=== PATIENT | female | born 1940 | race Caucasian/White ===

== ENCOUNTER 2016-08-06 22:41 | Inpatient (IN) ==
[2016-08-06] MEDS ORDERED: ALBUTEROL/IPRATROPIUM 3 ML NEB RESP TX STA (23:08)
[2016-08-06] MEDS ORDERED: methylPREDNISolone SOD SUC 125 MG/2 ML VIAL IV STA (23:08)
[2016-08-06] MEDS ORDERED: KETOROLAC 30 MG/1 ML VIAL IV STA (23:08)
[2016-08-06] MEDS ORDERED: AZITHROMYCIN INJ 500 MG in SODIUM CHLORIDE 0.9% 250 ML IV STA (23:11)
--- NOTE | 2016-08-06 23:15 | Emergency Department Note ---
Arrival - Arrival Chief Complaint: Shortness of Breath Stated Complaint: sob ED Nursing Triage Note: patient to ED transferring [facility] with c/o chest pain with movement and SOB. patient has nonproductive cough, elevated d dimer at 3.53 , and sating 87% on RA. Mode of Arrival: Stretcher Limitations: No Limitations Source: Patient, Family (onset of symptoms 2 weeks prior to presentation) Time Seen by Provider: 08/06/16 23:08 - History of Present Illness HPI Narrative: This 75-year-old white female presents on transfer from [facility] for complaints of 2 weeks of bilateral lower leg pains as well as progressive shortness of breath both at rest and with exertion as well as a dry cough. During this time she is likewise had a significant urinary tract infection for which she was on antibiotics. She has been seen prior to today 6 days ago for her symptoms but no significant change in treatment was given as she was already on antibiotics for the cystitis. She describes her pain as pleuritic and in the central chest not associated with hemoptysis. She denies a history of DVT or pulmonary embolus. She likewise denies any history of cardiac disease. At [place] she demonstrated an elevated d-dimer and they considered CTA however her creatinine was 2.3 so she could not receive intravenous contrast. She was given Rocephin IV as well as Lovenox subcutaneous and then transferred to our institution for further evaluation and possible lung scan in the morning. Currently she coughs frequently but does not appear in any severe distress although she does complain still of shortness of breath. Onset (ago): week(s) Consistency: constant Allergies/Adverse Reactions: Allergies Allergy/AdvReac Type Severity Reaction Status Date / Time No Known Allergies Allergy Unverified 08/06/16 22:53 Home Medications: Home Medications Medication Instructions Recorded Confirmed Type Unable To Obtain [Unable to Obtain] 08/06/16 08/06/16 History Review of System - Review of System 12 point system: reviewed and no additional remarkable complaints except as stated - Review of System Constitutional: Present: as per HPI Respiratory: Present: as per HPI Cardiovascular: Present: as per HPI Musculoskeletal: Present: as per HPI Medical,Surgical,& Family Hx - Medical History Cardio: History of: Hypertension Endocrine: History of: Thyroid Disorder - Social History Smoking Status: Never smoker Frequency of Alcohol Use: None Type of Drug Use: None Exam Physical Examination: GENERAL: Frail distant white female in no acute distress. HEENT: Normocephalic. No trauma. Moist mucous membranes. EOMI. PERRLA. NECK: Supple. No adenopathy. CARDIAC: Regular. No murmurs. Heart rate 105 CHEST: Clear to auscultation. No respiratory distress. O2 sat 90% ABDOMEN: Soft. Nontender. Active bowel sounds. EXTREMITIES: No trauma. Normal ROM. No pedal edema. Negative Homans sign SKIN: No diaphoresis. No rash. NEURO: Alert. Neuro intact. No focal deficits. Vital Signs: Vital Signs Temperature 97.2 F L 08/06/16 22:57 Pulse Rate 102 H 08/06/16 23:18 Respiratory Rate 26 H 08/06/16 23:18 Blood Pressure 128/92 08/06/16 22:57 O2 Sat by Pulse Oximetry 92 L 08/06/16 23:18 Course - Reevaluation(s) Reevaluation #1: Patient expectant of admission - Consultations Consultation #1: Discussed with Dr. Gottlieb, hospitalist, who will admit for further evaluation and treatment. Results - Labs CBC & BMP: 08/06/16 23:35 08/06/16 23:35 Labs: Laboratory per [place]: Troponin negative at 0.019, creatinine 2.1, sodium 137, CO2 20, glucose 113, BUN 34, white blood cell count 12,300, hematocrit 32.1, d- dimer 3.53 with a max normal of 0.53, BNP 194 with a max normal of 100. I have reviewed laboratory done here which reveals persistent anemia, hypokalemia, and renal insufficiency - Impressions EKG: Sinus rhythm at 98 with normal CO interval and QRS duration. Nonspecific ST changes. No acute injury pattern noted. - Diagnostic Findings Procedure: Chest x-ray: image reviewed by me, report reviewed by me (massive cardiomegaly with possible effusions) Disposition Clinical Impression: presumptive PTE, CHF with massive cardiomegaly, renal insufficiency, anemia, hypokalemia Case discussed with: patient, patient's family Condition: Guarded Time of Disposition: 00:29
[2016-08-06] MEDS ORDERED: KETOROLAC 30 MG/1 ML VIAL ONE (23:32)
[2016-08-06] MEDS ORDERED: AZITHROMYCIN 500 MG VIAL IV ONE (23:32)
[2016-08-06] MEDS ORDERED: methylPREDNISolone SOD SUC 125 MG/2 ML VIAL ONE (23:32)
--- NOTE | 2016-08-06 23:34 | EKG Report ---
Stationary ECG Study [facility] ER Test Date: 08/06/2016 11:32:17 PM Pat Name: YENI MENDEZ Department: Room: Gender: F Chief [place]ar[place]: : 1940 Requested by: Jorge Sigala Order Number: [id number] Reading MD: JOHNNY CANO Intervals [place] Rate: 98 P: 56 IN: 159 QRS: -7 QRSD: 90 T: 38 QT: 365 QTc: 420 Interpretive Statements SINUS RHYTHM NONSPECIFIC T-WAVE ABNORMALITY Electronically Signed On 08-07-16 17:55:51 PATIENT CARE SECRETARY by JOHNNY CANO [email or web address]
[2016-08-06 23:58] LABS: Basophils % 0.3 % (0.0-0.8); Eosinophils % 0.3 % (0.00-10.9); Hematocrit 33.1 VOL% (35.7-47.0); Hemoglobin 10.8 GM/DL (12.0-16.0); Immature Granulocytes Absolute 0.12 #; Lymphocytes # 1.8 10*3/uL (1.4-4.0); Lymphocytes % 15.4 % (21.3-54.2); Mean Corpuscular HGB Conc 32.6 GM/DL (32-36); Mean Corpuscular Hemoglobin 27 PG (27-34); Monocytes # 1.1 10*3/uL (0.11-0.8); Monocytes % 9.4 % (1.7-12.7); Neutrophils # 8.4 10*3/uL (1.4-7.4); Neutrophils % 73.6 % (38.7-73.9); Platelet Count 391 T/CUMM (130-400); Red Blood Count 3.99 MC/CUMM (3.8-5.5); Red Cell Distribution Width 18.8 % (9.3-17.3); White Blood Count 11.4 T/CUMM (4-12)
[2016-08-07 00:10] LABS: INR 1.2; PT Patient Result 12.6 SECS; Partial Thromboplastin Time 30.8 SECS (0-40)
[2016-08-07] MEDS ORDERED: LORazepam 2 MG/1 ML VIAL IV STA (00:15)
[2016-08-07 00:16] LABS: Albumin 2.8 G/DL (3.4-5.0); Bilirubin,Total 0.7 MG/DL (0.2-1.0); Calcium 8.6 MG/DL (8.5-10.1); Osmolality,Calculated 292.1 MOS/KG (273-304); Total Protein 7.3 G/DL (6.4-8.3)
[2016-08-07] MEDS ORDERED: LORazepam 2 MG/1 ML VIAL ONE (00:16)
[2016-08-07] MEDS ORDERED: ENOXAPARIN 100 MG/ML SYRINGE SUBCUT STA (00:34)
[2016-08-07] MEDS ORDERED: ENOXAPARIN 100 MG/ML SYRINGE SUBCUT ONE (00:38)
--- NOTE | 2016-08-07 02:19 | Hospitalist History & Physical ---
Assessment and Plan (1) Elevated d-dimer Status: Acute Current Visit: Yes (2) Shortness of breath Status: Acute Current Visit: Yes (3) decreased O2 sats Status: Acute Current Visit: Yes (4) large cardiac silhouette on chest x-ray Status: Acute Current Visit: Yes (5) History of hypertension Status: Acute Current Visit: Yes (6) increased creatinine Status: Acute Assessment and plan: Plan for this patient. Patient is currently received IV Rocephin and 100 mg of Lovenox. She received the IV Rocephin for the urinary tract infection. They were concerned that patient had a PE. They sending her over to our hospital for a VQ scan we will order a VQ scan. I'm also going to order a 2-D echo. Patient's enlarged cardiac silhouette is significant. I will make sure that there is not a large pericardial effusion in this patient. Patient's family's is supposed to bring her home medications at our hospital. She received 100 mg of IV Lovenox at the outside facility. Based on her creatinine this is an appropriate amount that can be given every 24 hours for treatment of a PE. If the VQ scan is negative for PE will be able to discontinue that medication. Current Visit: Yes History of Present Illness Chief complaint: shortness of breath transfer from outside facility History of present illness: This is Ms. Myers she is a 75-year-old white female past medical history of includes cholesterol hypertension urinary tract infection arthritis and presents tonight as a transfer from an outside facility. Patient's been experiencing complaints 2 weeks. She had been complaining about leg pain as well as progressive shortness of breath at rest and exertion as well as a dry cough. Her daughter said she came home today to check on her mother and the mother was in the bed crying saying that she was hurting in her chest. She did have some episodes of vomiting. She described the pain as pleuritic and in the center of her chest with no hemoptysis. She doesn't have a history of DVT or PE. She has no history of cardiac disease or congestive heart failure. In the workup at [facility] she had an elevated d-dimer. They considered doing a CTA however creatinine was 2.3 and she did not receive any IV contrast. She was given IV Rocephin and Lovenox. The right Rocephin was for cystitis. And there were sending her here for a possible lung scan in the morning. Currently are not examined her she is asleep saying that she feels better and that she's not short of breath I was consulted to admit the patient Home Medications Medication Instructions Recorded Confirmed Type Unable To Obtain [Unable to Obtain] 08/06/16 08/06/16 History Allergies Allergy/AdvReac Type Severity Reaction Status Date / Time No Known Allergies Allergy Unverified 08/06/16 22:53 Medical,Surgical,& Family Hx - Medical History Cardio: History of: Hypertension Endocrine: History of: Thyroid Disorder - Surgical History Surgical History: noncontributory - Family History Family History: Reports;: Family Diabetes, Family Heart Disease - Social History Smoking Status: Never smoker Frequency of Alcohol Use: None Type of Drug Use: None 12 point system: reviewed and no additional remarkable complaints except as stated Exam - Constitutional Vitals: Period Temp Pulse Resp BP Sys/Kuo Pulse Ox Last 24 Hr 97.2 F-97.2 F 94-104 22-30 128-128/92-92 90-92 General appearance: normal weight, no acute distress - Head Head exam: Present: normal inspection - Eye Eye exam: Present: EOMI Pupils: Present: MARIA EUGENIA - ENT ENT exam: Present: normal exam - Neck Neck exam: Present: normal inspection - Respiratory Respiratory exam: Present: clear to auscultation bilaterally - Cardiovascular Cardiovascular exam: Present: regular rate and rhythm - GI/Abdominal GI/Abdominal exam: Present: normal bowel sounds - Extremities Exam Extremities exam: Present: normal inspection - Back Exam Back exam: Present: normal inspection - Neurological Exam Neurological exam: Present: alert - Psychiatric Psychiatric exam: Present: normal affect - Skin Skin exam: Present: normal color Results - Labs CBC & BMP: 08/06/16 23:35 08/06/16 23:35
[2016-08-07] MEDS ORDERED: ACETAMINOPHEN 325 MG TABLET PO PRN (02:33)
[2016-08-07] MEDS ORDERED: ONDANSETRON 4 MG/2 ML VIAL IV PRN (02:33)
[2016-08-07] MEDS ORDERED: ALBUTEROL 2.5 MG/3 ML NEB RESP TX PRN (02:33)
[2016-08-07] MEDS ORDERED: POTASSIUM CHLORIDE 20 MEQ TABLET PO STA (02:44)
[2016-08-07] MEDS ORDERED: POTASSIUM CHLORIDE 20 MEQ TABLET PO ONE (03:03)
--- NOTE | 2016-08-07 06:15 | Ultrasound Report ---
Referring physician: Jorge Pastrana Exam: Bilateral lower extremity venous ultrasound Date: August 07, 2016 Comparison: None Reason: Evaluate for DVT, elevated d-dimer and shortness of breath Technique: Duplex scan of the bilateral lower extremity veins was performed using B-Mode/grayscale imaging and Doppler spectral analysis and color flow. Ultrasound images were captured and stored. Findings: There is no evidence of thrombus within the left or right common femoral veins, saphenous veins, superficial femoral veins or popliteal veins. Normal compression and augmentation are present throughout. Normal color flow and spectral analysis are observed. Impression: No evidence of deep venous thrombosis within either lower extremity. PROCEDURE INTERPRETED AT [facility] DEPARTMENT OF RADIOLOGY Final Report Signed by: Dr. Compa Saunders
--- NOTE | 2016-08-07 06:50 | XRay Report ---
Referring Physician: Jorge Pastrana Exam: XR chest 1V portable Date: August 06, 2016 at 11:01 PM Reason: Shortness of breath Comparison: Chest one view portable August 06, 2016 at 4:04 PM Findings: The cardiac silhouette is again enlarged. This could reflect cardiomegaly and/or a pericardial effusion. Opacities are present within both lower lung zones. This likely represents atelectasis and pulmonary edema, but superimposed pneumonia is not excluded. No pneumothorax is identified, but there is mild bilateral pleural fluid. No acute osseous process is seen. Impression: There has been no significant change. PROCEDURE INTERPRETED AT [facility] DEPARTMENT OF RADIOLOGY Final Report Signed by: Dr. Compa Saunders
[2016-08-07] MEDS: ALBUTEROL/IPRATROPIUM 3 ML NEB RESP TX SCH ×3 (07:06→19:22)
--- NOTE | 2016-08-07 08:30 | Nuclear Medicine Report ---
Nuclear medicine ventilation/perfusion scan Indication: Shortness of breath Findings: Ventilation scan: The patient received 40.0 mCi of 90 9M technetium DTPA aerosolized. There is normal distribution of radiotracer in both lungs. Perfusion scan: Patient received 5.0 mCi of 90 9M technetium MAA intravenously. There is normal in distribution of radiotracer in both lungs without evidence of segmental or greater defects. Impression: Normal nuclear medicine ventilation perfusion scan. This indicates low probability for pulmonary embolism. PROCEDURE INTERPRETED AT [facility] DEPARTMENT OF RADIOLOGY Final Report Signed by: Dr. Eugenio Velazquez
[2016-08-07 08:50] LABS: Basophils % 0.1 % (0.0-0.8); Hematocrit 32.5 VOL% (35.7-47.0); Hemoglobin 10.4 GM/DL (12.0-16.0); Immature Granulocytes % 1.5 %; Immature Granulocytes Absolute 0.17 #; Lymphocytes # 0.8 10*3/uL (1.4-4.0); Lymphocytes % 6.8 % (21.3-54.2); Mean Corpuscular Hemoglobin 28 PG (27-34); Monocytes # 0.5 10*3/uL (0.11-0.8); Monocytes % 4.2 % (1.7-12.7); Neutrophils # 9.8 10*3/uL (1.4-7.4); Neutrophils % 87.4 % (38.7-73.9); Platelet Count 367 T/CUMM (130-400); Red Blood Count 3.78 MC/CUMM (3.8-5.5); Red Cell Distribution Width 18.9 % (9.3-17.3); White Blood Count 11.2 T/CUMM (4-12)
[2016-08-07 09:33] LABS: Albumin 2.7 G/DL (3.4-5.0); Bilirubin,Total 0.5 MG/DL (0.2-1.0); Calcium 8.5 MG/DL (8.5-10.1); Osmolality,Calculated 295.3 MOS/KG (273-304); Potassium 3.4 MMOL/L (3.5-5.1); Total Protein 7.5 G/DL (6.4-8.3)
[2016-08-07] MEDS: PANTOPRAZOLE 40 MG TABLET PO SCH (10:40)
[2016-08-07] MEDS: cefTRIAXone 1,000 MG in SODIUM CHLORIDE 0.9% 100 ML IV SCH (20:39)
[2016-08-07] MEDS ORDERED: ENOXAPARIN 40 MG/0.4 ML SYRINGE SUBCUT SCH (21:00)
[2016-08-07] MEDS: AZITHROMYCIN INJ 500 MG in SODIUM CHLORIDE 0.9% 250 ML IV SCH (23:00)
[2016-08-08] MEDS: ALBUTEROL/IPRATROPIUM 3 ML NEB RESP TX SCH ×4 (00:30→20:11)
[2016-08-08] MEDS: PANTOPRAZOLE 40 MG TABLET PO SCH (08:42)
--- NOTE | 2016-08-08 13:41 | Hospitalist Progress Note ---
Assessment and Plan (1) Shortness of breath Status: Acute Assessment and plan: with elevated Ddimer. VQ scan and doppler USS were negative. Follow Echo continue bronchodilators, and antibiotics Current Visit: Yes (2) History of hypertension Status: Acute Assessment and plan: stable Current Visit: Yes (3) large cardiac silhouette on chest x-ray Status: Acute Assessment and plan: follow Echo to r/o cardiomegaly vs pericardial effusion Current Visit: Yes Hospitalist: Subjective Interval history: Patient seen,her VQ scan and dopplers were negative for PE and DVT.She breathes and feels better. Blood culture was negative so far. Exam - Constitutional Vitals: Period Temp Pulse Resp BP Sys/Kuo Pulse Ox Last 24 Hr 96.7 F-98.1 F 87-101 16-22 97-122/44-62 89-98 General appearance: no acute distress - Head Head exam: Present: normal inspection - Respiratory Respiratory exam: Present: clear to auscultation bilaterally - Cardiovascular Cardiovascular exam: Present: regular rate and rhythm - GI/Abdominal GI/Abdominal exam: Present: normal bowel sounds - Extremities Exam Extremities exam: Present: normal inspection Results - Labs CBC & BMP: 08/07/16 08:31 08/07/16 08:31 Lab Results: I have reviewed the past 24 hour labs
--- NOTE | 2016-08-08 16:30 | ECHO Report ---
Deirdre Ferreira Exam Date: 08/07/2016 07:59 Referring Physician: Technologist: Fay Puentes RDCS Age: 75 Ht (in): Wt (lb): Gender: F Exam Location: [facility] Echo Indications: Elevated D-Dimer, Decreaded sats, Shortness of breath, Essential (primary) hypertension, Abnormal CXR, Possible pericardial effusion BP: / HR: Rhythm: Sinus Technical Quality: Average IMPRESSIONS Left ventricular ejection fraction is estimated at 65 %. Grade I diastolic dysfunction. Tricuspid regurgitation velocities suggest a PAP of 53 mmHg. Loculated pericardial effusion as described below MEASUREMENTS (Male / Female) Normal Values 2D ECHO LV Diastolic Diameter PLAX 5.5 cm 4.2 - 5.9 / 3.9 - 5.3 cm LV Systolic Diameter PLAX 3.2 cm LV Fractional Shortening PLAX 42.3 % IVS Diastolic Thickness 1.0 cm 0.6 - 1.0 / 0.6 - 0.9 cm LVPW Diastolic Thickness 1.0 cm 0.6 - 1.0 / 0.6 - 0.9 cm RV Internal Dim ED PLAX 3.3 cm Aortic Root Diameter 3.7 cm LA Systolic Diameter LX 4.1 cm 3.0 - 4.0 / 2.7 - 3.8 cm DOPPLER TR Peak Velocity 326.0 cm/s TR Peak Gradient 42.5 mmHg FINDINGS Left Ventricle Mildly increased left ventricular cavity size. Normal left ventricular wall thickness. Left ventricular ejection fraction is estimated at 65 %. Grade I diastolic dysfunction. Right Ventricle The right ventricle is normal in size and function. Right Atrium The right atrium is normal in size. There late systolic collapse of the RA Left Atrium The left atrium is normal in size. Mitral Valve Mildly thickened mitral valve with mild mitral regurgitation. Aortic Valve Morphologically normal aortic valve without significant sclerosis or stenosis. There is no aortic regurgitation. Tricuspid Valve Morphologically normal tricuspid valve. Mild tricuspid valve regurgitation. Tricuspid regurgitation velocities suggest a PAP of 53 mmHg. Pulmonic Valve Morphologically normal pulmonic valve. Trace pulmonary valve regurgitation. Pericardium Moderate pericardial effusion with loculation or fibrinous material on the free myocardial wall. The effusion is primarily posterior. Anteriorly on a thin layer of echolucent fluid. The mitral inflow varies as much as 25% with respirations and the tricuspid inflow varies by almost 40%. Pleural effusion. Aorta Normal ascending aorta dimension. Michelle Miller (Electronically Signed) Final Date: 07 August 2016 16:08
[2016-08-08] MEDS: cefTRIAXone 1,000 MG in SODIUM CHLORIDE 0.9% 100 ML IV SCH (20:19)
[2016-08-08] MEDS ORDERED: ENOXAPARIN 30 MG/0.3 ML SYRINGE SUBCUT SCH (21:00)
[2016-08-08] MEDS ORDERED: ENOXAPARIN 100 MG/ML SYRINGE SUBCUT SCH (21:00)
[2016-08-08] MEDS: AZITHROMYCIN INJ 500 MG in SODIUM CHLORIDE 0.9% 250 ML IV SCH (23:07)
[2016-08-09] MEDS: ALBUTEROL/IPRATROPIUM 3 ML NEB RESP TX SCH ×3 (00:49→14:09)
[2016-08-09 08:34] VITALS: BP 125/60
--- NOTE | 2016-08-09 09:20 | XRay Report ---
Portable chest Date:[08/09/2016] Clinical history: Shortness of breath Comparison: 08/06/2016 Technique: Portable AP sitting chest Findings: Prominent cardiomegaly with prominence of pulmonary vasculature. Progressive diffuse parenchymal findings especially in the right lung with small to moderate bilateral pleural effusions. Stable mediastinum and osseous structures. Impression: Progressive CHF/bilateral pneumonia with small to moderate pleural effusions. PROCEDURE INTERPRETED AT [facility] DEPARTMENT OF RADIOLOGY Final Report Signed by: Dr. Saba Kerns
--- NOTE | 2016-08-09 09:44 | Discharge Summary ---
Hospital Course - Hospital Course Hospital Course: She is a 75-year-old white female past medical history of includes cholesterol hypertension, urinary tract infection,arthritis[facility], [facility] and [facility] and presents tonight as a transfer from an outside facility.She was on Rocephin for treatment of UTI.We had a negative VQ scan and doppler uss, couldnt do a CTA due to her renal failure.CXR showed CHF and bilateral pneumonia with pleural effusions. She was treatment with Rocephin,Azithromax, Lasix.Echo has been done but result is pending.Patient's condition has improved and will be going home today. - Time spent with patient Time with patient DS: Greater than 30 minutes Diagnosis - Discharge Diagnosis (1) Shortness of breath Status: Acute (2) History of hypertension Status: Acute (3) large cardiac silhouette on chest x-ray Status: Acute Discharge Plan - Discharge Data Disposition: Disch To Home/Self Care Condition at Discharge: Stable Discharge Diet: heart healthy Activity: resume usual activities as tolerated - Discharge Medications New Acetaminophen Tab [Tylenol Tab] 650 mg PO Q4H PRN #0 tablet PRN Reason: fever, headache/body aches Carvedilol [Coreg] 3.125 mg PO BID #30 tablet Furosemide Tab [Lasix Tab] 20 mg PO BID DIURETIC #30 tablet Levofloxacin Tab [Levaquin Tab] 250 mg PO DAILY #7 tablet Potassium Chloride Cap/Tab [K Dur] 10 meq PO DAILY #30 tablet Continue Pantoprazole Tab [Protonix Tab] 40 mg PO DAILY Meloxicam [Mobic] 15 mg PO DAILY Lovastatin 40 mg PO DAILY Levothyroxine Sodium 100 mcg PO DAILY Discontinued amLODIPine [Norvasc] 10 mg PO DAILY Lisinopril 20 mg PO BID - Follow Up or Referral - Forms/Instructions Additional Discharge Instructions: Follow up with PCP in 1week Exam - Constitutional Vitals: Period Temp Pulse Resp BP Sys/Kuo Pulse Ox Last 24 Hr 96.7 F-98.6 F 87-97 16-20 117-138/60-72 88-99 General appearance: no acute distress - Respiratory Respiratory exam: Present: decreased breath sounds - GI/Abdominal GI/Abdominal exam: Present: normal bowel sounds - Extremities Exam Extremities exam: Present: normal inspection Discharge Results Procedures and tests throughout hospitalization: Pending Orders 02/04/17 17:58 Urine Culture Routine DS: Provider Date of admission: 08/07/16 02:34 Primary care physician: . No PCP Attending physician on admission: Ade Sol MD Discharging clinician: Ade Sol MD
[2016-08-09] MEDS ORDERED: FUROSEMIDE 20 MG/2 ML VIAL IV ONE (09:56)
[2016-08-09] MEDS: PANTOPRAZOLE 40 MG TABLET PO SCH (10:14)
[2016-08-09] MEDS ORDERED: AZITHROMYCIN 250 MG TABLET PO SCH (21:00)
--- NOTE | 2016-08-11 13:13 | Physician Query Form ---
CLICK EDIT DOCUMENT TO SELECT QUERY ANSWER --> OK --> SIGN Macrina Newton RN, CCDS Certified Clinical [facility]ron W) [phone] (f) [phone] [email or web address] PROVIDERS: Make your selection(s) from the choices in EACH section by typing an "x" and enter comments in the comment section. Please use your independent medical judgment in providing your response. This request does not imply that any particular answer is desired or expected. CLINICAL INDICATORS: (Providers should not edit this section) The medical record indicates that the patient was admitted with SOB, No known history of CHF, BNP of 134# and only given one dose of IV Lasix on the 5th: of 20 mg.-------------> [CXR showed CHF and bilateral pneumonia with pleural effusions] Please provide further specificity regarding CHF. ACUITY: ( ) Acute ( ) Chronic ( ) Acute on Chronic ( x) Clinically unable to determine TYPE: ( ) Systolic ( ) Diastolic ( ) Combined Systolic/Diastolic ( ) Other, please specify: ( ) Clinically unable to determine ( ) The patient does NOT have CHF COMMENTS: Use of terms such as suspected, likely, or probable (associated with a specific diagnosis that is being evaluated, monitored, or treated as if it exists) are acceptable and can be restated in the discharge summary if not ruled out. MTDD
== END 2016-08-09 13:00 | disposition home or self-care (01) | DRG 194 ==
LOC: N.ED 22:41 → N.EDINP 08-07 02:33 → N.TELES 08-07 03:07
PROVIDERS: ADMIT Internal Medicine; ATTEND Internal Medicine